=== PATIENT | female | born 1935 | race Two or more races ===

== ENCOUNTER 2022-08-23 01:47 | Inpatient (IN) | payer OTHER ==
[~2022-08-23] VITALS: Ht 154.9 cm; Wt 56.7 kg
[2022-08-23] MEDS ORDERED: MONTELUKAST SOD10 MG (02:14)
[2022-08-23] MEDS ORDERED: DILTIAZEM ER180 M2 (02:14)
[2022-08-23] MEDS ORDERED: LEVO-T25 MCG (02:14)
[2022-08-23] MEDS ORDERED: METFORMIN HCL500 M4 (02:14)
[2022-08-23] MEDS ORDERED: FEXOFENADINE H180 MG (02:15)
[2022-08-28] MEDS ORDERED: PANTOPRAZOLE SO40 MG PO (21:14)
[2022-08-28] MEDS ORDERED: AMIODARONE HCL200 MG PO (21:14)
[2022-08-28] MEDS ORDERED: LEVO-T25 MCG PO (21:14)
[2022-08-28] MEDS ORDERED: METFORMIN HCL500 M4 PO (21:14)
[2022-08-28] MEDS ORDERED: ELIQUIS2.5 MG PO (21:14)
[2022-08-28] MEDS ORDERED: TOPROL XL25 M1 PO (21:14)
== END 2022-08-28 21:57 | disposition home or self-care (01) | DRG 291 ==
LOC: ER 01:47 → ICU-2 12:10 → ICU 08-25 04:03 → MEDJ 08-27 13:58
PROVIDERS: ADMIT Internal Medicine; ATTEND Internal Medicine
PROC: 4A12X4Z Monitoring of Cardiac Electrical Activity, External Approach (ICD-10-PCS; principal; 2022-08-23)
PROC: 05HQ33Z Insertion of Infusion Device into Left External Jugular Vein, Percutaneous Approach (ICD-10-PCS; 2022-08-23)
PROC: B24BYZZ Ultrasonography of Heart with Aorta using Other Contrast (ICD-10-PCS; 2022-08-23)
DX: I11.0 Hypertensive heart disease with heart failure (principal); I50.23 Acute on chronic systolic (congestive) heart failure; J98.11 Atelectasis; I43 Cardiomyopathy in diseases classified elsewhere; I48.91 Unspecified atrial fibrillation; E11.8 Type 2 diabetes mellitus with unspecified complications; E03.8 Other specified hypothyroidism; E78.5 Hyperlipidemia, unspecified; I35.0 Nonrheumatic aortic (valve) stenosis; Z79.84 Long term (current) use of oral hypoglycemic drugs; D64.9 Anemia, unspecified; Z66 Do not resuscitate